=== PATIENT | female | born 1980 | race American Indian/Alaskan Native ===

== ENCOUNTER 2018-09-11 01:30 | Emergency (ER) | payer OTHER ==
[2018-09-11 01:30] VITALS: BMI 40.7
[2018-09-11 01:41] VITALS: TEMP 97.6
[2018-09-11 02:38] LABS: BASO % 0.1 % (0.0-2.0); EOS # 0.3 K/uL (0.0-0.7); EOS % 4.2 % (0.0-4.0); HEMOGLOBIN 12.5 g/dL (11.0-16.0); LYMPH # 2.8 K/uL (1.0-4.3); LYMPH % 43.1 % (20.0-40.0); MEAN CELL VOLUME 89.3 fL (81.0-99.0); MEAN CORPUSCULAR HEMOGLOBIN 29.9 pg (27.0-31.0); MEAN CORPUSCULAR HGB CONC 33.5 g/dL (33.0-37.0); MEAN PLATELET VOLUME 7.9 fL (7.2-11.7); MONO # 0.5 K/uL (0.0-0.8); MONO % 8.5 % (0.0-10.0); NEUT # 2.8 K/uL (1.8-7.0); NEUT % 44.1 % (50.0-75.0); RBC 4.19 Mil/uL (3.80-5.20); RED CELL DISTRIBUTION WIDTH 13.6 % (11.5-14.5); WHITE BLOOD COUNT 6.4 K/uL (4.8-10.8)
[2018-09-11 03:03] LABS: ALB/GLOB RATIO 1.3 (1.0-2.1); ALBUMIN 3.9 g/dL (3.5-5.0); ALT/SGPT 38 U/L (9-52); AST/SGOT 31 U/L (14-36); BLOOD UREA NITROGEN 9 mg/dL (7-17); CALCIUM 8.3 mg/dl (8.6-10.4); GFR NON-AFRICAN AMERICAN > 60
--- NOTE | 2018-09-11 03:21 | C.PDOC ---
History Of Present Illness 38 year old female presents to the ED c/o left upper chest pain for the past 2 days. Patient reports pain worsens with left arm movement. Patient reports today pain has been more persistent. Patient has a DEPO shot for control and is not taking any other oral contraceptive. Patient denies fever, chills, SOB, palpitations, rash, weakness, numbness, injury, fall, trauma, recent immobilization, prolonged travel, history of known coagulopathy. Time Seen by Provider: 09/11/18 01:55 Chief Complaint (Nursing): Chest Pain History Per: Patient History/Exam Limitations: no limitations Onset/Duration Of Symptoms: Days (2) Current Symptoms Are (Timing): Still Present Quality: "Pain" Exacerbating Factors: Movement Recent travel outside of the [place]: No Additional History Per: Patient Past Medical History Reviewed: Historical Data, Nursing Documentation, Vital Signs Vital Signs: Last Vital Signs Temp 97.6 F 09/11/18 01:36 Pulse 82 09/11/18 01:36 Resp 20 09/11/18 01:36 BP 122/88 09/11/18 01:36 Pulse Ox 99 09/11/18 01:36 - Medical History PMH: Asthma, Fractures (BILATERAL HIPS) Surgical History: Cholecystectomy - [facility] Procedures OTHER LOCAL DESTRUC SKIN (07/21/14) TETANUS TOXOID ADMINIST (09/24/14) Family History: States: Unknown Family Hx - Social History Hx Tobacco Use: Yes Hx Alcohol Use: Yes Hx Substance Use: No - Immunization History Hx Tetanus Toxoid Vaccination: No Hx Influenza Vaccination: No Hx Pneumococcal Vaccination: No Review Of Systems Constitutional: Negative for: Fever, Chills Cardiovascular: Positive for: Chest Pain. Negative for: Palpitations Respiratory: Negative for: Shortness of Breath Gastrointestinal: Negative for: Nausea, Vomiting, Abdominal Pain Skin: Negative for: Rash Neurological: Negative for: Weakness, Numbness, Headache Physical Exam - Physical Exam Appears: Non-toxic, No Acute Distress Skin: Normal Color, Warm, Dry Head: Atraumatic, Normacephalic Eye(s): bilateral: Normal Inspection Neck: Normal ROM, Supple Chest: Symmetrical, Tenderness (left sided chest wall) Cardiovascular: Rhythm Regular Respiratory: Normal Breath Sounds, No Rales, No Rhonchi, No Wheezing Gastrointestinal/Abdominal: Soft, No Tenderness, No Guarding, No Rebound Extremity: Normal ROM, No Tenderness, No Swelling Neurological/Psych: Oriented x3, Normal Speech, Normal Cognition Gait: Steady ED Course And Treatment - Laboratory Results Result Diagrams: 09/11/18 02:33 09/11/18 02:33 Lab Results: Troponin I < 0.0120 ng/mL (0.00-0.120) 09/11/18 02:33 Total Bilirubin 0.3 mg/dL (0.2-1.3) 09/11/18 02:33 AST 31 U/L (14-36) 09/11/18 02:33 ALT 38 U/L (9-52) 09/11/18 02:33 Alkaline Phosphatase 50 U/L (38-126) 09/11/18 02:33 Total Protein 6.9 g/dL (6.3-8.3) 09/11/18 02:33 Albumin 3.9 g/dL (3.5-5.0) 09/11/18 02:33 Globulin 3.0 gm/dL (2.2-3.9) 09/11/18 02:33 Albumin/Globulin Ratio 1.3 (1.0-2.1) 09/11/18 02:33 ECG: Interpreted By Me, Viewed By Me ECG Rhythm: Sinus Rhythm Interpretation Of ECG: NO acute ST/T wave changes Rate From EC (BPM) O2 Sat by Pulse Oximetry: 99 (ON RA) Pulse Ox Interpretation: Normal - Radiology CXR: Interpreted by Me, Viewed By Me Progress Note: Plan: - labs. - CXR. - aspirin 325 mg PO. - toradol 15 mg IVP. Patient is resting comfortably, is no longer having chest pain or shortness of breath. Patient has no risk factors for pulmonary emboli or DVT. Clinical presentation is not suggestive of aortic dissection. Patient is being discharged home and is being advised to follow up with physician/clinic in 1-2 days. Disposition Counseled Patient/Family Regarding: Diagnosis, Need For Followup - Disposition Referrals: Daniel Maurer MD [Staff Provider] - Disposition: HOME/ ROUTINE Disposition Time: 03:56 Condition: STABLE Additional Instructions: Tylenol or advil for pain Follow up with Dr Maurer for regulatory auditor referral Return to ER if worse Instructions: Chest Pain (DC) Forms: [employer] (Chinese) - Clinical Impression Clinical Impression: Chest pain - PA / METAL FINISHER / Resident Statement MD/DO has reviewed & agrees with the documentation as recorded. - Scribe Statement The provider has reviewed the documentation as recorded by the Scribe Brayan Alonzo All medical record entries made by the Sadieibe were at my direction and personally dictated by me. I have reviewed the chart and agree that the record accurately reflects my personal performance of the history, physical exam, medical decision making, and the department course for this patient. I have also personally directed, reviewed, and agree with the discharge instructions and disposition.
[2018-09-11 03:29] VITALS: BP 136/95; PULSE 85; RESP 16
[2018-09-11 03:56] VITALS: O2SAT 99
--- NOTE | 2018-09-11 11:46 | RAD ---
Date of service: 09/11/2018 HISTORY: chest pain COMPARISON: No prior. FINDINGS: LUNGS: No active pulmonary disease. PLEURA: No significant pleural effusion identified, no pneumothorax apparent. CARDIOVASCULAR: No atherosclerotic calcification present Normal. OSSEOUS STRUCTURES: No significant abnormalities. VISUALIZED UPPER ABDOMEN: Normal. OTHER FINDINGS: None. IMPRESSION: No active disease.
== END 2018-09-11 04:07 | disposition home or self-care (01) ==
LOC: C.ER 01:30
DX: R07.89 Other chest pain (principal); Z72.0 Tobacco use
CPT/HCPCS: 71045; 80053; 84484; 85025; 85378; 93005; 96374; 99284; J1885